=== PATIENT | male | born 1960 | race African-American/Black ===

== ENCOUNTER 2019-01-05 00:14 | Emergency (ER) | payer OTHER ==
[~2019-01-05] VITALS: Ht 172.7 cm; Wt 68.0 kg
[2019-01-05] MEDS ORDERED: IPRATRPIUM/ALBUTEROL 0.5/2.5MG 3 ML NEBU. NEB ONE ×2 (00:45→01:30)
[2019-01-05] MEDS ORDERED: methylPREDNISolone SOD SUCC PF 125 MG/2 ML VIAL. IV ONE (00:45)
--- NOTE | 2019-01-05 01:00 | RAD ---
AP chest. HISTORY: Short of breath AP view was taken of the chest. Lungs are clear. Heart is normal in size without heart failure. There is no pleural effusion. IMPRESSION: 1. No acute infiltrates. Electronically signed by: Brannon Greene MD (01/05/2019 12:58 AM) [facility]
[2019-01-05 01:02] LABS: BASO % 1 % (0-3); EOS # 0.4 x10^3/uL (0.0-0.7); EOS % 10 % (0-3); HEMATOCRIT 46.2 % (39.0-53.0); HEMOGLOBIN 15.2 g/dL (13.0-17.5); LYMPH # 1.6 x10^3/uL (1.0-4.8); LYMPH % 42 % (24-48); MEAN CORPUSCULAR HEMOGLOBIN 29 pg (25-35); MEAN CORPUSCULAR HGB CONC 33 g/dL (31-37); MEAN CORPUSCULAR VOLUME 88 fL (79-100); MONO # 0.4 x10^3/uL (0.0-1.1); MONO % 12 % (0-9); NEUT # 1.4 x10^3uL (1.8-7.7); NEUT % 37 % (31-73); PLATELET COUNT 139 x10^3/uL (140-400); RED BLOOD COUNT 5.27 x10^6/uL (4.30-5.70); RED CELL DISTRIBUTION WIDTH 14.9 % (11.5-14.5); WHITE BLOOD COUNT 3.8 x10^3/uL (4.0-11.0)
[2019-01-05 01:13] LABS: CALCIUM 9.2 mg/dL (8.5-10.1); CREATININE 1.2 mg/dL (0.7-1.3); POTASSIUM 3.7 mmol/L (3.5-5.1); PROTHROMBIN TIME PATIENT 15.4 SEC (11.7-14.0)
[2019-01-05 01:19] LABS: ALBUMIN 4.2 g/dL (3.4-5.0); ALBUMIN/GLOBULIN RATIO 1.1 (1.0-1.7); TOTAL BILIRUBIN 0.6 mg/dL (0.2-1.0)
[2019-01-05 01:45] VITALS: BP 159/71
[2019-01-05] MEDS ORDERED: ALBU2.5V8 INH (02:00)
[2019-01-05] MEDS ORDERED: DOXY100T PO (02:00)
[2019-01-05] MEDS ORDERED: PRED50TA PO (02:00)
--- NOTE | 2019-01-05 02:45 | PHYS DOC ---
Past Medical History Past Medical History: No Pertinent History Past Surgical History: No Surgical History Alcohol Use: None Drug Use: Marijuana Adult General Chief Complaint Chief Complaint: SHORTNESS OF BREATH HPI HPI Patient is a 58 year old female who presents with chief complaint of a one hour of shortness of breath. He smokes marijuana every day the symptoms started a little while after he was smoking marijuana. Apparently he was seen at emergency room 3 weeks ago for very similar sudden onset shortness of breath some breathing treatments and she felt much better he was discharged home in stable condition after they did multiple x-rays and CT scan according to the patient's . Patient doesn't have a primary care doctor he is a smoker otherwise he has no known past medical history does not take any daily medications patient denied any chest pain at all. Review of Systems Review of Systems Constitutional: Denies fever or chills [] Cardiovascular: No additional information not addressed in HPI [] GI: Denies abdominal pain, nausea, vomiting, bloody stools or diarrhea [] : Denies dysuria or hematuria [] Musculoskeletal: Denies back pain or joint pain [] Integument: Denies rash or skin lesions [] Neurologic: Denies headache, focal weakness or sensory changes [] Endocrine: Denies polyuria or polydipsia [] All other systems were reviewed and found to be within normal limits, except as documented in this note. Current Medications Current Medications Current Medications Medications (Trade) Dose Ordered Sig/[facility] Start Time Stop Time Status Last Admin Dose Admin Albuterol/ Ipratropium (Duoneb) 3 ml 1X ONCE 01/05/19 01:30 01/05/19 01:31 DC 01/05/19 01:12 3 ML Methylprednisolone Sodium Succinate (SOLU-Medrol 125MG VIAL) 125 mg 1X ONCE 01/05/19 00:45 01/05/19 00:46 DC 01/05/19 01:03 125 MG Allergies Allergies Allergies Coded Allergies Type Severity Reaction Last Updated Verified No Known Drug Allergies 01/05/19 No Physical Exam Physical Exam Constitutional: Well developed, well nourished, , non-toxic appearance. []Mild DISTRESS HENT: Normocephalic, atraumatic, bilateral external ears normal, oropharynx moist, no oral exudates, nose normal. [] Eyes: PERRLA, EOMI, conjunctiva normal, no discharge. [] Neck: Normal range of motion, no tenderness, supple, no stridor. [] Cardiovascular:Heart rate regular rhythm, no murmur [] Lungs & Thorax: WHEEZING NOTED DIFFUSELY MIL DINCREASE IN RESPIRATORY EFFORT. ON SECOND CHECK AFTER NEB, STILL WHEEZING BUT IMPORVED RESPIRATORY EFFORT. Abdomen: Bowel sounds normal, soft, no tenderness, no masses, no pulsatile masses. [] Skin: Warm, dry, no erythema, no rash. [] Back: No tenderness, no CVA tenderness. [] Extremities: No tenderness, no cyanosis, no clubbing, ROM intact, no edema. [] Neurologic: Alert and oriented X 3, normal motor function, normal sensory function, no focal deficits noted. [] Psychologic: Affect normal, judgement normal, mood normal. [] Current Patient Data Vital Signs Vital Signs Date Time Temp Pulse Resp B/P (MAP) Pulse Ox O2 Delivery O2 Flow Rate FiO2 01/05/19 01:12 96 Room Air 01/05/19 00:16 97.7 62 24 152/82 (105) 97.7 Lab Values Laboratory Tests Test 01/05/19 00:50 White Blood Count 3.8 x10^3/uL (4.0-11.0) L Red Blood Count 5.27 x10^6/uL (4.30-5.70) Hemoglobin 15.2 g/dL (13.0-17.5) Hematocrit 46.2 % (39.0-53.0) Mean Corpuscular Volume 88 fL (79-100) Mean Corpuscular Hemoglobin 29 pg (25-35) Mean Corpuscular Hemoglobin Concent 33 g/dL (31-37) Red Cell Distribution Width 14.9 % (11.5-14.5) H Platelet Count 139 x10^3/uL (140-400) L Neutrophils (%) (Auto) 37 % (31-73) Lymphocytes (%) (Auto) 42 % (24-48) Monocytes (%) (Auto) 12 % (0-9) H Eosinophils (%) (Auto) 10 % (0-3) H Basophils (%) (Auto) 1 % (0-3) Neutrophils # (Auto) 1.4 x10^3uL (1.8-7.7) L Lymphocytes # (Auto) 1.6 x10^3/uL (1.0-4.8) Monocytes # (Auto) 0.4 x10^3/uL (0.0-1.1) Eosinophils # (Auto) 0.4 x10^3/uL (0.0-0.7) Basophils # (Auto) 0.0 x10^3/uL (0.0-0.2) Prothrombin Time 15.4 SEC (11.7-14.0) H Prothrombin Time INR 1.3 (0.8-1.1) H Sodium Level 142 mmol/L (136-145) Potassium Level 3.7 mmol/L (3.5-5.1) Chloride Level 103 mmol/L (98-107) Carbon Dioxide Level 28 mmol/L (21-32) Anion Gap 11 (6-14) Blood Urea Nitrogen 13 mg/dL (8-26) Creatinine 1.2 mg/dL (0.7-1.3) Estimated GFR (Cockcroft-Gault) 75.0 BUN/Creatinine Ratio 11 (6-20) Glucose Level 98 mg/dL (70-99) Calcium Level 9.2 mg/dL (8.5-10.1) Total Bilirubin 0.6 mg/dL (0.2-1.0) Aspartate Amino Transferase (AST) 21 U/L (15-37) Alanine Aminotransferase (ALT) 35 U/L (16-63) Alkaline Phosphatase 102 U/L (46-116) Troponin I Quantitative < 0.017 ng/mL (0.000-0.055) PK-Hmj-T-Type Natriuretic Peptide 66 pg/mL (0-124) Total Protein 8.0 g/dL (6.4-8.2) Albumin 4.2 g/dL (3.4-5.0) Albumin/Globulin Ratio 1.1 (1.0-1.7) Laboratory Tests 01/05/19 00:50 Laboratory Tests 01/05/19 00:50 EKG EKG 12:18 AM there was some borderline ST depressions in the inferior leads EKG for comparison. No obvious ischemia elevation was identified. Repeat EKG done at 12:[address] segments in the inferior leads sinus bradycardia persistent ST segments are similar overall in the anterolateral leads no ST elevation that which criteria for STEMI.[] Radiology/Procedures Radiology/Procedures [] Impressions: Chest x-ray negative for pneumonia Course & Med Decision Making Course & Med Decision Making Pertinent Labs and Imaging studies reviewed. (See chart for details) []58-year-old male smoker presenting with chief complaint of shortness of breath and wheezing significant initially gave 2 names after treatment felt much better said he 90s on room air breathing. Patient ambulated throughout the emergency room after treatment with no difficulty at all no chest pain no shortness of breath he said he felt much better. Noted is sort of borderline EKG but troponin negative no chest pain had obvious respiratory findings on clinical examination improved significantly after treatment of bronchospasm. Patient also had recurrent symptoms 3 weeks ago. Patient is discharged with treatment of likely bronchitis or COPD exacerbation. The primary care doctor for management of chronic medical illnesses return precautions discussed in detail for any new or worsening symptoms. Dragon Disclaimer Dragon Disclaimer This electronic medical record was generated, in whole or in part, using a voice recognition dictation system. Departure Departure Impression: Primary Impression: Bronchitis Disposition: HOME, SELF-CARE Condition: STABLE Patient Instructions: Bronchitis Scripts Doxycycline Hyclate (DOXYCYCLINE HYCLATE) 100 Mg Tablet 1 TAB PO BID, #14 TAB Prov: WILLIS COTA MD 01/05/19 Prednisone (PREDNISONE) 50 Mg Tablet 1 TAB PO DAILY, #5 TAB Prov: WILLIS COTA MD 01/05/19 Albuterol Sulfate (PROAIR HFA INHALER) 8.5 Gm Hfa.aer.ad 1 PUFF INH PRN Q6HRS PRN for SHORTNESS OF BREATH, #1 INHALER 0 Refills Prov: WILLIS COTA MD 01/05/19 WILLIS COTA MD Jan 05, 2019 02:45
--- NOTE | 2019-01-05 11:49 | EKG ---
[facility] [address] [place] [address] Test Date: 2019-01-05 Test Time: 00:18:59 Pat Name: COLT GODOY Department: Room: Gender: M Electromechanic: : 1960 Requested By: WILLIS COTA Order Number: [id number] Reading MD: Measurements Intervals [place] Rate: 49 P: 90 MA: 214 QRS: 59 QRSD: 78 T: -46 QT: 442 QTc: 402 Interpretive Statements SINUS BRADYCARDIA QRS(T) CONTOUR ABNORMALITY CONSISTENT WITH SEPTAL INFARCT PROBABLY OLD T ABNORMALITY IN INFERIOR LEADS ABNORMAL ECG RI6.01 Unconfirmed report No previous ECG available for comparison
--- NOTE | 2019-01-05 12:13 | EKG ---
[facility] [address] [place] [address] Test Date: 2019-01-05 Test Time: 00:43:49 Pat Name: COLT GODOY Department: Room: Gender: M Plant Electrician: : 1960 Requested By: WILLIS COTA Order Number: [id number] Reading MD: Measurements Intervals [place] Rate: 48 P: 90 IL: 222 QRS: 44 QRSD: 72 T: 26 QT: 428 QTc: 386 Interpretive Statements SINUS BRADYCARDIA PROLONGED [place] INTERVAL QRS(T) CONTOUR ABNORMALITY CONSISTENT WITH ANTEROSEPTAL INFARCT AGE UNDETERMINED ABNORMAL ECG RI6.01 Unconfirmed report No previous ECG available for comparison
== END 2019-01-05 02:05 | disposition home or self-care (01) ==
LOC: ER 00:14
DX: J40 Bronchitis, not specified as acute or chronic (principal); F12.10 Cannabis abuse, uncomplicated; F17.200 Nicotine dependence, unspecified, uncomplicated
CPT/HCPCS: 36415; 71045; 80053; 83880; 84484; 85025; 85610; 93005; 94640; 96374; 99285; J2930; J7620

== ENCOUNTER 2019-03-01 23:09 | Emergency (ER) | payer OTHER ==
[~2019-03-01] VITALS: Ht 154.9 cm; Wt 70.3 kg
[~2019-03-01 23:09] MED LIST: ALBU2.5V8 INH; DOXY100T PO; PRED50TA PO
[2019-03-01] MEDS ORDERED: IV NORMAL SALINE 1000ML BAG 1,000 ML IV ONE (23:45)
[2019-03-01] MEDS ORDERED: DEXAMETHASONE SOD PHOS 20 MG/5 ML VIAL. IV ONE (23:45)
[2019-03-01] MEDS ORDERED: IPRATRPIUM/ALBUTEROL 0.5/2.5MG 3 ML NEBU. NEB ONE (23:45)
[2019-03-01 23:50] LABS: BASO % 0 % (0-3); EOS # 0.2 x10^3/uL (0.0-0.7); EOS % 3 % (0-3); HEMATOCRIT 44.7 % (39.0-53.0); HEMOGLOBIN 14.8 g/dL (13.0-17.5); LYMPH # 1.4 x10^3/uL (1.0-4.8); LYMPH % 20 % (24-48); MEAN CORPUSCULAR HEMOGLOBIN 29 pg (25-35); MEAN CORPUSCULAR HGB CONC 33 g/dL (31-37); MEAN CORPUSCULAR VOLUME 87 fL (79-100); MONO # 0.6 x10^3/uL (0.0-1.1); MONO % 8 % (0-9); NEUT # 4.8 x10^3/uL (1.8-7.7); NEUT % 68 % (31-73); PLATELET COUNT 155 x10^3/uL (140-400); RED BLOOD COUNT 5.14 x10^6/uL (4.30-5.70); RED CELL DISTRIBUTION WIDTH 15.3 % (11.5-14.5)
[2019-03-02 00:07] LABS: BILIRUBIN,URINE NEGATIVE (NEG); CLARITY,URINE CLEAR; COLOR,URINE YELLOW; NITRITE,URINE NEGATIVE (NEG); PH,URINE 5.5; PROTEIN,URINE NEGATIVE (NEG-TRACE); UROBILINOGEN,URINE 0.2 mg/dL (0.2 mg/dL)
[2019-03-02 00:08] LABS: CALCIUM 9.1 mg/dL (8.5-10.1); GFR 92.5; POTASSIUM 3.7 mmol/L (3.5-5.1)
[2019-03-02 00:10] LABS: BACTERIA,URINE 0 /HPF (0-FEW); RBC,URINE 0 /HPF (0-2); WBC,URINE 0 /HPF (0-4)
[2019-03-02 00:11] LABS: SQUAMOUS EPITHELIAL CELL,UR OCC /LPF
[2019-03-02 00:15] LABS: ALBUMIN 3.9 g/dL (3.4-5.0); ALBUMIN/GLOBULIN RATIO 1.1 (1.0-1.7); MAGNESIUM 2.1 mg/dL (1.8-2.4); TOTAL BILIRUBIN 0.7 mg/dL (0.2-1.0); TOTAL PROTEIN 7.3 g/dL (6.4-8.2)
--- NOTE | 2019-03-02 00:34 | RAD ---
Single view chest dated 03/02/2019. Comparison made to 01/05/2019. Clinical data indication: Dyspnea. FINDINGS: Single upright portable exam performed. Heart and mediastinal contours are stable. Lungs are somewhat hyperinflated but otherwise clear. No consolidation or pleural effusion. No pneumothorax. IMPRESSION: No acute radiographic abnormality. Electronically signed by: Seth Zimmerman MD (03/02/2019 12:31 AM) [facility]
--- NOTE | 2019-03-02 00:40 | PHYS DOC ---
Past Medical History Past Medical History: No Pertinent History Past Surgical History: No Surgical History Additional Information: Nonsmoker Alcohol Use: None Drug Use: Marijuana Adult General Chief Complaint Chief Complaint: SHORTNESS OF BREATH HPI HPI 58-year-old male presents with report of progressive wheezing that started earlier today. Patient reports history of bronchitis. Reports had previously had similar episode which required steroids and albuterol. Patient does report continued smoking history. Denies fever or chills. Denies known trauma. Denies leg swelling or calf tenderness. Review of Systems Review of Systems Constitutional: Denies fever or chills Eyes: Denies redness or eye pain HENT: Denies nasal congestion or sore throat Respiratory: Reports cough, wheezing, and shortness of breath Cardiovascular: Denies chest pain or palpitations GI: Denies abdominal pain, nausea, or vomiting : Denies dysuria or hematuria Musculoskeletal: Denies back pain or joint pain Integument: Denies rash or skin lesions Neurologic: Denies headache, focal weakness or sensory changes Complete systems were reviewed and found to be within normal limits, except as documented in this note. Current Medications Current Medications Current Medications Medications (Trade) Dose Ordered Sig/[facility] Start Time Stop Time Status Last Admin Dose Admin Albuterol/ Ipratropium (Duoneb) 3 ml 1X ONCE 03/02/19 01:30 03/02/19 01:28 DC 03/02/19 01:12 3 ML Dexamethasone Sodium Phosphate (Decadron) 10 mg 1X ONCE 03/01/19 23:45 03/01/19 23:46 DC 03/01/19 23:47 10 MG Sodium Chloride 1,000 ml @ 1,000 mls/hr 1X ONCE 03/01/19 23:45 03/02/19 00:44 DC 03/01/19 23:47 1,000 MLS/HR Allergies Allergies Allergies Coded Allergies Type Severity Reaction Last Updated Verified No Known Drug Allergies 01/05/19 No Physical Exam Physical Exam Constitutional: Well developed, well nourished, no acute distress, non-toxic appearance HENT: Normocephalic, atraumatic, oropharynx moist Eyes: PERRL, EOMI, conjunctiva normal, no discharge Neck: Normal range of motion, no tenderness, supple Cardiovascular: Heart rate normal, regular rhythm Lungs & Thorax: Diffuse wheezing noted, diminished breath sounds at bases Skin: Warm, dry, no erythema, no rash Back: No tenderness, no CVA tenderness Extremities: No tenderness, ROM intact, no edema Neurologic: Alert and oriented X 3, no focal deficits noted Psychologic: Affect normal, judgement normal Current Patient Data Vital Signs Vital Signs Date Time Temp Pulse Resp B/P (MAP) Pulse Ox O2 Delivery O2 Flow Rate FiO2 03/02/19 01:12 99 Room Air 03/02/19 00:47 59 20 156/82 (106) 03/01/19 23:34 3.0 03/01/19 23:13 98.2 98.2 Lab Values Laboratory Tests Test 03/01/19 23:39 03/01/19 23:54 White Blood Count 7.0 x10^3/uL (4.0-11.0) Red Blood Count 5.14 x10^6/uL (4.30-5.70) Hemoglobin 14.8 g/dL (13.0-17.5) Hematocrit 44.7 % (39.0-53.0) Mean Corpuscular Volume 87 fL (79-100) Mean Corpuscular Hemoglobin 29 pg (25-35) Mean Corpuscular Hemoglobin Concent 33 g/dL (31-37) Red Cell Distribution Width 15.3 % (11.5-14.5) H Platelet Count 155 x10^3/uL (140-400) Neutrophils (%) (Auto) 68 % (31-73) Lymphocytes (%) (Auto) 20 % (24-48) L Monocytes (%) (Auto) 8 % (0-9) Eosinophils (%) (Auto) 3 % (0-3) Basophils (%) (Auto) 0 % (0-3) Neutrophils # (Auto) 4.8 x10^3/uL (1.8-7.7) Lymphocytes # (Auto) 1.4 x10^3/uL (1.0-4.8) Monocytes # (Auto) 0.6 x10^3/uL (0.0-1.1) Eosinophils # (Auto) 0.2 x10^3/uL (0.0-0.7) Basophils # (Auto) 0.0 x10^3/uL (0.0-0.2) Sodium Level 143 mmol/L (136-145) Potassium Level 3.7 mmol/L (3.5-5.1) Chloride Level 106 mmol/L (98-107) Carbon Dioxide Level 30 mmol/L (21-32) Anion Gap 7 (6-14) Blood Urea Nitrogen 9 mg/dL (8-26) Creatinine 1.0 mg/dL (0.7-1.3) Estimated GFR (Cockcroft-Gault) 92.5 BUN/Creatinine Ratio 9 (6-20) Glucose Level 83 mg/dL (70-99) Lactic Acid Level 1.4 mmol/L (0.4-2.0) Calcium Level 9.1 mg/dL (8.5-10.1) Magnesium Level 2.1 mg/dL (1.8-2.4) Total Bilirubin 0.7 mg/dL (0.2-1.0) Aspartate Amino Transferase (AST) 19 U/L (15-37) Alanine Aminotransferase (ALT) 25 U/L (16-63) Alkaline Phosphatase 89 U/L (46-116) Creatine Kinase 155 U/L (39-308) Creatine Kinase MB (Mass) 0.7 ng/mL (0.0-3.6) Creatine Kinase MB Relative Index 0.5 % (0-4) Troponin I Quantitative < 0.017 ng/mL (0.000-0.055) JQ-Ciu-L-Type Natriuretic Peptide 100 pg/mL (0-124) Total Protein 7.3 g/dL (6.4-8.2) Albumin 3.9 g/dL (3.4-5.0) Albumin/Globulin Ratio 1.1 (1.0-1.7) Urine Collection Type Unknown Urine Color Yellow Urine Clarity Clear Urine pH 5.5 Urine Specific Foreman 1.010 Urine Protein Negative mg/dL (NEG-TRACE) Urine Glucose (UA) Negative mg/dL (NEG) Urine Ketones (Stick) Negative mg/dL (NEG) Urine Blood Negative (NEG) Urine Nitrite Negative (NEG) Urine Bilirubin Negative (NEG) Urine Urobilinogen Dipstick 0.2 mg/dL (0.2 mg/dL) Urine Leukocyte Esterase Negative (NEG) Urine RBC 0 /HPF (0-2) Urine WBC 0 /HPF (0-4) Urine Squamous Epithelial Cells Occ /LPF Urine Bacteria 0 /HPF (0-FEW) Laboratory Tests 03/01/19 23:39 Laboratory Tests 03/01/19 23:39 EKG EKG @2319 Sinus bradycardia at 55bpm, NO ST elevation, J point elevation at V3, no reciprocal changes, QRS 76ms, QT/QTc 414/398ms Radiology/Procedures Radiology/Procedures PROCEDURE: PORTABLE CHEST 1V Single view chest dated 03/02/2019. Comparison made to 01/05/2019. Clinical data indication: Dyspnea. FINDINGS: Single upright portable exam performed. Heart and mediastinal contours are stable. Lungs are somewhat hyperinflated but otherwise clear. No consolidation or pleural effusion. No pneumothorax. IMPRESSION: No acute radiographic abnormality. Electronically signed by: Seth Zimmerman MD (03/02/2019 12:31 AM) [facility] Course & Med Decision Making Course & Med Decision Making Pertinent Labs and Imaging studies reviewed. (See chart for details) Patient presents with history of present illness and physical exam consistent for bronchitis. Patient does report continued smoking. DuoNeb provided �2 with interval improvement of symptoms. Labs obtained and posted to chart. EKG stable. Chest x-ray without acute process. Patient stable for discharge with outpatient follow-up with PCP. Discussed findings and plan with patient and family, who acknowledge understanding and agreement. Dragon Disclaimer Dragon Disclaimer This electronic medical record was generated, in whole or in part, using a voice recognition dictation system. Departure Departure Impression: Primary Impression: Acute bronchitis Disposition: 01 HOME, SELF-CARE Condition: STABLE Referrals: NO PCP (PCP) Patient Instructions: Acute Bronchitis, Pwtv-[id number]-Fzzh Scripts Prednisone (PREDNISONE) 20 Mg Tablet 2 TAB PO DAILY, #8 TAB Start this prescription tomorrow, Monday03/03/19 Prov: SETH FERNANDO DO 03/02/19 Albuterol Sulfate (PROAIR HFA INHALER) 8.5 Gm Hfa.aer.ad 1 PUFF INH PRN Q6HRS PRN for WHEEZING, #1 INHALER 0 Refills Prov: SETH FERNANDO DO 03/02/19 Problem Qualifiers Primary Impression: Acute bronchitis Bronchitis organism: unspecified organism Qualified Codes: J20.9 - Acute bronchitis, unspecified SETH FERNANDO DO Mar 02, 2019 00:40
[2019-03-02 00:47] VITALS: BP 156/82
[2019-03-02] MEDS ORDERED: PRED20TA PO (01:16)
[2019-03-02] MEDS ORDERED: ALBU2.5V8 INH (01:16)
[2019-03-02] MEDS ORDERED: IPRATRPIUM/ALBUTEROL 0.5/2.5MG 3 ML NEBU. NEB ONE (01:30)
--- NOTE | 2019-03-02 12:52 | EKG ---
[facility] [address] [place] [address] Test Date: 2019-03-01 Test Time: 23:19:16 Pat Name: COLT GODOY Department: Room: Gender: M Hazardous Materials Driver: : 1960 Requested By: ESTELA FERNANDO Order Number: [id number] Reading MD: Measurements Intervals [place] Rate: 54 P: 59 IN: 220 QRS: 29 QRSD: 76 T: 46 QT: 414 QTc: 398 Interpretive Statements SINUS RHYTHM PROLONGED IN INTERVAL NON SPECIFIC ST-T ABNORMALITY (ELEVATION) ABNORMAL ECG No previous ECG available for comparison
== END 2019-03-02 01:28 | disposition home or self-care (01) ==
LOC: ER 23:09
DX: J20.9 Acute bronchitis, unspecified (principal); F17.200 Nicotine dependence, unspecified, uncomplicated
CPT/HCPCS: 36415; 71045; 80053; 81001; 82553; 83605; 83735; 83880; 84484; 85025; 93005; 94640; 96374; 99285; J1100; J7030; J7620